=== PATIENT | male | born 1995 | race Two or more races ===

== ENCOUNTER 2016-08-19 13:00 | Emergency (ER) | payer MEDICAID ==
[~2016-08-19] VITALS: Ht 182.9 cm; Wt 70.3 kg
--- NOTE | 2016-08-19 13:10 | NUR ---
REMOVE ALL BELONGINGS PLACED AT STATION .
--- NOTE | 2016-08-19 13:15 | NUR ---
AT BEDSIDE FOR EVAL
--- NOTE | 2016-08-19 13:21 | NUR ---
[facility] [place] in [facility] - 08/19/16 at 1440 by GLO URINE SAMPLE COLLECTED SENT TO LAB
--- NOTE | 2016-08-19 13:22 | NUR ---
LAB AT BEDSIDE COLLECTED BLOOD SAMPLE.
[2016-08-19] MEDS ORDERED: QUETIAPINE FUMARATE 25 MG TABLET PO SCH (13:30)
[2016-08-19 13:31] LABS: BASOPHILS % (AUTO) 0.6 % (0.0-2.0); EOSINOPHILS # (AUTO) 0.1 /CMM (0.0-0.7); EOSINOPHILS % (AUTO) 1.6 % (0.0-6.0); HEMATOCRIT 45 % (39-51); HEMOGLOBIN 15.1 g/dL (13.5-17.5); LYMPHOCYTES # (AUTO) 2.4 /CMM (0.8-4.8); LYMPHOCYTES % (AUTO) 29.4 % (20.0-44.0); MEAN CORPUSCULAR HEMOGLOBIN 32 PG (26.0-33.0); MEAN CORPUSCULAR HGB CONC 34 g/dl (31.0-36.0); MEAN CORPUSCULAR VOLUME 93 fL (80-96); MONOCYTES # (AUTO) 0.5 /CMM (0.1-1.30); MONOCYTES % (AUTO) 6.5 % (2.0-12.0); NEUTROPHILS # (AUTO) 5.1 /CMM (1.8-8.9); NEUTROPHILS % (AUTO) 61.9 % (43.0-81.0); PLATELET COUNT (AUTO) 217 /CMM (150-450); RDW COEFFICIENT OF VARIATION 12.9 (11.5-15.0); RED BLOOD CELL COUNT(AUTO) 4.78 MIL/uL (4.5-6.0); WHITE BLOOD COUNT (AUTO) 8.2 K/uL (4.3-11.0)
[2016-08-19 14:01] LABS: ALBUMIN 4.5 g/dL (3.4-5.0); ALCOHOL, BLOOD < 3 mg/dL (0-0); BILIRUBIN,DIRECT 0.1 mg/dL (0.0-0.2); CARBON DIOXIDE 29 mmol/L (21-32); CHLORIDE 102 mmol/L (98-107); CREATININE 0.8 mg/dL (0.6-1.3); GFR 121 mL/min (>60); GLUCOSE 98 mg/dL (74-106); POTASSIUM 3.6 mmol/L (3.5-5.1); SODIUM SERUM 139 mmol/L (136-145); UREA NITROGEN, BLOOD 9 mg/dL (7-18)
--- NOTE | 2016-08-19 14:40 | NUR ---
URINE SAMPLE COLLECTED SENT TO LAB
[2016-08-19 14:44] LABS: APPEARANCE,URINE Clear (CLEAR); BILIRUBIN,URINE Negative (NEGATIVE); BLOOD, URINE Trace-lysed Ery/uL (NEGATIVE); COLOR,URINE Yellow (YELLOW); KETONES,URINE Negative (NEGATIVE); LEUKOCYTE ESTERASE ,URINE Negative (NEGATIVE); NITRITE, URINE Negative (NEGATIVE); PROTEIN,URINE Negative (NEGATIVE); UGLUCOSE Negative (NEGATIVE); UROBILINOGEN,URINE 0.2 EU/dL (0.2)
[2016-08-19 14:44] LABS: ALANINE AMINOTRANSFERASE 31 U/L (12-78); ALKALINE PHOSPHATASE 69 U/L (46-116); ASPARTATE AMINOTRANSFERASE 16 U/L (15-37); BILIRUBIN,TOTAL 0.8 mg/dL (0.2-1.0); CALCIUM, SERUM 9.3 mg/dL (8.5-10.1); TOTAL PROTEIN, SERUM 7.7 g/dL (6.4-8.2)
[2016-08-19 14:53] LABS: CANNABINOID, URINE NEGATIVE (NEGATIVE); PHENCYCLIDINE SCREEN,URINE NEGATIVE (NEGATIVE)
--- NOTE | 2016-08-19 15:00 | NUR ---
CALLED [facility] FOR PSYCH EVAL
[2016-08-19 15:10] LABS: ACETAMINOPHEN < 2 ug/ml (10-30); SALICYLATE < 2.8 mg/dL (2.8-20.0)
[2016-08-19 15:24] LABS: ADD URINE CULTURE NO; BACTERIA,URINE Rare /HPF (None Seen); RBC,URINE 0-2 /HPF (0-2); SQUAMOUS EPITHELIAL CELL,UR Rare /HPF (None Seen); WBC,URINE 0-2 /HPF (0-3)
--- NOTE | 2016-08-19 15:30 | NUR ---
[facility] EVAL AT BEDSIDE
--- NOTE | 2016-08-19 20:31 | NUR ---
CALLED [facility] SPOKE WITH ES AT INTAKE, SHE WILL CALL ME BACK IN 30 MIN REGARDING PATIENT ACCEPTANCE AT [facility]
--- NOTE | 2016-08-19 20:58 | NUR ---
RECEIVED A CALL FROM ES, PATIENT HAS BEEN ACCEPTED AT [facility] ROOM 307-2, ACCEPTED BY DR. MURPHY. RN WHO WILL BE STEPHANIA AT [place] WILL BE SARAH, , REQUESTING FOR REPORT TO BE GIVEN AT 2200
--- NOTE | 2016-08-19 21:00 | NUR ---
CALLED [facility] FOR TRANSPORTATION GOING TO [facility], ETA [id number]
--- NOTE | 2016-08-19 22:08 | NUR ---
GAVE REPORT TO [facility] .
[2016-08-19 22:09] VITALS: BP 120/82
== END 2016-08-19 22:38 ==
LOC: ER 13:02
DX: R45.851 Suicidal ideations (principal); F32.9 Major depressive disorder, single episode, unspecified; F41.9 Anxiety disorder, unspecified; F31.9 Bipolar disorder, unspecified
CPT/HCPCS: 36415; 80048; 80076; 80305; 80329; 81001; 85025; 99285; A4606; G0480 ×2; Z7610; 81000-TC; G6039-TC